=== PATIENT | male | born 1945 | race Caucasian/White ===

== ENCOUNTER 2018-11-24 19:37 | Observation (INO) ==
--- NOTE | 2018-11-24 19:47 | Emergency Department Note ---
Disposition Clinical Impression: Syncope Disposition: Admitted As Inpatient Condition: Fair General Adult HPI - General Chief complaint: ED Syncope Stated complaint: Mulitiple syncopal episodes Time Seen by Provider: 11/24/18 19:44 - Related Data Home Medications Medication Instructions Recorded Confirmed Albuterol Sulfate [Albuterol 2 puff IH TID 07/14/15 06/21/16 Inhaler] Aspirin 81 mg PO BID 07/14/15 06/21/16 Atenolol [Tenormin] 12.5 mg PO HS 07/14/15 06/21/16 Gabapentin [Neurontin] 300 mg PO HS 07/14/15 06/21/16 Glucagon,Human Recombinant 1 mg IJ 6XD 07/14/15 06/21/16 [Glucagon Emergency Kit] Insulin ASPART [NovoLOG] 100 unit SQ DAILY MDD 63.35 UNIT 07/14/15 06/21/16 PER DAY + BOLUS Magnesium Oxide [Magnesium] 400 mg PO DAILY 07/14/15 06/21/16 Metformin [Glucophage] 500 mg PO BID 07/14/15 06/21/16 Nitroglycerin 0.4 mg SL Q5MIN 07/14/15 06/21/16 Ranitidine HCl [Zantac] 150 mg PO BID 07/14/15 06/21/16 Rosuvastatin [Crestor] 20 mg PO HS 07/14/15 06/21/16 Spironolactone [Aldactone] 25 mg PO DAILY 07/14/15 06/21/16 Testosterone [Androgel] 81 mg TD DAILY 07/14/15 06/21/16 Venlafaxine [Effexor] 150 mg PO DAILY 07/14/15 06/21/16 Trospium Chloride 20 mg PO BID 05/18/16 06/21/16 Alprostadil [[place]] 500 mcg UR AD 06/21/16 06/21/16 Lactobacillus Combination No.8 1 cap PO DAILY 06/21/16 06/21/16 [Adult Probiotic] Loratadine [Claritin] 10 mg PO DAILY 06/21/16 06/21/16 Mirabegron [Myrbetriq] 50 mg PO DAILY 06/21/16 06/21/16 Finasteride [Proscar] 5 mg PO DAILY 09/27/16 09/27/16 Previous Rx's Medication Instructions Recorded Docusate [Colace] 100 mg PO BID #60 capsule 05/18/16 HYDROcodone/Acet 5/325 mg [[place] 2 tab PO Q4H PRN #30 tablet 05/18/16 5-325 mg] Ciprofloxacin [Cipro] 500 mg PO BID #14 tablet 07/12/16 Tizanidine HCl 4 mg PO TID #15 tablet 09/05/17 Tramadol HCl [Ultram] 50 mg PO TID PRN #12 tab 09/05/17 Allergies Allergy/AdvReac Type Severity Reaction Status Date / Time etodolac Allergy Mild Rash Verified 07/14/15 08:11 naproxen Allergy Mild Rash Verified 07/14/15 08:11 niacin Allergy Mild Rash Verified 06/21/16 11:15 penicillin V Allergy Mild Itching Verified 07/14/15 08:11 atorvastatin [From Lipitor] Allergy Unknown See Verified 07/14/15 08:11 Comments tolterodine [From Detrol] Allergy Unknown See Verified 07/14/15 08:11 Comments metformin AdvReac Mild Diarrhea Verified 07/14/15 08:11 Past Medical History - Past Medical History Medical history: Reports: non-contributory, other Surgical history: Reports: non-contributory, cataract, other Psychiatric history: Reports: no psych history - Social History Smoking Status: Never smoker Smokeless Tobacco Status: No Alcohol use: Reports: none Drug use: Reports: none Course Vital Signs Temperature 97.9 F 11/24/18 19:41 Pulse Rate 81 11/24/18 19:41 Respiratory Rate 20 11/24/18 19:41 Blood Pressure 155/75 11/24/18 19:41 O2 Sat by Pulse Oximetry 99 11/24/18 19:41 Temperature 97.9 F 11/24/18 19:41 Pulse Rate 83 11/24/18 21:39 Respiratory Rate 18 11/24/18 21:39 Blood Pressure 127/65 11/24/18 21:39 O2 Sat by Pulse Oximetry 96 11/24/18 21:39 Oxygen Delivery Oxygen Delivery Room Air Medical Decision Making - Lab Data Result diagrams: 11/24/18 20:16 11/24/18 20:16 Lab Results 11/24/18 11/24/18 11/24/18 Range/Units 20:05 20:16 20:16 WBC 9.4 (4.3-11.1) K/mcL RBC 4.38 (4.19-5.50) M/mcL Hgb 12.2 L (12.9-16.9) g/dL Hct 37.2 L (37.5-50.1) % MCV 84.9 (83.0-100.0) fL MCH 27.9 L (28.0-33.3) pg MCHC 32.8 (31.6-35.5) g/dL RDW 13.5 (11.5-14.5) % Plt Count 270 (140-400) K/mcL MPV 9.5 (9.4-12.4) fL Immature Gran % 0.4 (0-4) % Seg Neutrophils % 67.8 % Lymphocytes % 19.9 % Monocytes % 9.3 % Eosinophils % 1.7 % Basophils % 0.9 % Neutrophils # 6.4 (1.6-8.9) K/mcL Lymphocytes # 1.9 (0.6-4.6) K/mcL Monocytes # 0.9 (0.0-1.3) K/mcL Eosinophils # 0.2 (0.0-0.6) K/mcL Basophils # 0.1 (0.0-0.2) K/mcL Sodium 135 L (136-145) mEq/L Potassium 3.8 (3.5-5.1) mEq/L Chloride 99 (98-107) mEq/L Carbon Dioxide 28 (23-29) mEq/L BUN 26 H (8-23) mg/dL Creatinine 1.72 H (0.70-1.30) mg/dL Est GFR ( Amer) 48 L (> 60) Est GFR (Non-Af Amer) 39 L (> 60) BUN/Creatinine Ratio 15 (6-26) Glucose 97 (70-105) mg/dL Calculated Osmolality 285 (280-300) Calcium 9.7 (8.6-10.3) mg/dL Troponin I < 0.03 (< 0.04) ng/mL Urine Color Yellow (Yellow) Urine Clarity Clear (Clear) Urine pH 6.0 (5.0-8.0) pH Units Ur Specific [place] 1.018 (1.010-1.025) Urine Protein Trace (Neg-Trace) mg/dL Urine Glucose (UA) Normal (Normal) mg/dL Urine Ketones Negative (Negative) mg/dL Urine Blood Negative (Negative) Urine Nitrite Negative (Negative) Urine Bilirubin Negative (Negative) Urine Urobilinogen Normal (Normal) mg/dL Ur Leukocyte Esterase Negative (Negative) Urine Microscopic RBC 0-3 (0-3) per hpf Urine Microscopic WBC 0-3 (0-3) per hpf Ur Squamous Epith Cells Moderate H (None-Few) per lpf Urine Bacteria None Seen (None-Few) per hpf Hyaline Casts None Seen (None-Few) per lpf Attestation Statement - Attestation Attestation: I examined this patient and my medical decision-making was reviewed with the Resident Physician. I agree with the documented findings, disposition and treatment plan as described except to the extent set forth below. Patient presents to the ED with chief complaint of syncopal episode. Patient a single episode after standing up and walking to the kitchen to get a Pepsi. Patient has a history of orthostatic hypertension he takes Midrin. He had 3 episodes last night and 1 today. Family is concerned. Patient denies feeling his heart racing palpitations. No chest pain or difficulty breathing. He stat es he just feels like his "going backwards." On examination he is in no acute distress. Pleasant conversant moving all extremities. Heart regular rate and rhythm lungs are clear. Plan. Cardiac workup. Critical workup unremarkable. Patient is admitted for further workup and concern for his safety with the frequent falls. Chest X-Ray 11/24/18 19:49 IMPRESSION: No acute cardiopulmonary disease. D/ / Jasbir Kincaid MD / Jasbir Kincaid MD Interpreting Provider: Jasbir Kincaid MD Head CT 11/24/18 19:50 IMPRESSION: No acute intracranial abnormality. D/ / Bijan Cunha MD / Bijan Cunha MD Interpreting Provider: Bijan Cunha MD
[2018-11-24] MEDS ORDERED: 0.9 % Sodium Chloride 1,000 ML IVC ONE (19:49)
[2018-11-24 20:18] LABS: Bilirubin,Urine Negative (Negative); Blood,Urine Negative (Negative); Clarity,Urine Clear (Clear); Color,Urine Yellow (Yellow); Glucose,Urine (UA) Normal (Normal); Ketones,Urine Negative (Negative); Leukocyte Esterase,Urine Negative (Negative); Nitrite,Urine Negative (Negative); Protein,Urine Trace mg/dL (Neg-Trace); Specific Gravity,Urine 1.018 (1.010-1.025); Urobilinogen,Urine Normal (Normal)
[2018-11-24 20:21] LABS: Bacteria,Urine None Seen per hpf (None-Few); Hyaline Casts,Urine None Seen per lpf (None-Few); RBC,Urine 0-3 per hpf (0-3); Squamous Epithelial Cell,Urine Moderate per lpf (None-Few); WBC,Urine 0-3 per hpf (0-3)
--- NOTE | 2018-11-24 20:30 | Emergency Department Note ---
Disposition Clinical Impression: Syncope Qualifiers: Syncope type: unspecified Qualified Code(s): R55 - Syncope and collapse Disposition: Admitted As Inpatient Condition: Fair [facility]errals: [facility] [Primary Care Provider[facility] - Time of Disposition: 22:32 Syncope HPI - General Chief Complaint: ED Syncope Stated Complaint: Mulitiple syncopal episodes Time Seen by Provider: 11/24/18 19:44 Source: patient, family, EMS Mode of arrival: ambulatory Limitations: no limitations Nursing Notes Reviewed: Yes Vital Signs Reviewed: Yes - History of Present Illness HPI Narrative: 73-year-old male presents to the emergency department for multiple syncopal events. These been occurring more the last 3-4 days. Today they happened approximately 3 times he said he stated up out of the chair was walking took 2 or 3 steps felt lightheaded and then fell to the ground does not remember the fall to the ground said he completely did pass out. They said that he did not hit his head is not complaining of any headaches. Patient does take midodrine for hypotension. Patient said he had no pain or any sensations prior to this event. He have any racing is heart. Does not have any ear pain. Otherwise there is no complaints this time including fevers, chills, nausea, vomiting, headache, blurry vision, neck pain, back pain, chest pain, shortness of breath, abdominal pain, change in bowel movement, pain with urination, pain or tingling going down the arms or legs or generalized weakness. - Related Data Home Medications Medication Instructions Recorded Confirmed Albuterol Sulfate [Albuterol 2 puff IH TID 07/14/15 06/21/16 Inhaler] Aspirin 81 mg PO BID 07/14/15 06/21/16 Atenolol [Tenormin] 12.5 mg PO HS 07/14/15 06/21/16 Gabapentin [Neurontin] 300 mg PO HS 07/14/15 06/21/16 Glucagon,Human Recombinant 1 mg IJ 6XD 07/14/15 06/21/16 [Glucagon Emergency Kit] Insulin ASPART [NovoLOG] 100 unit SQ DAILY MDD 63.35 UNIT 07/14/15 06/21/16 PER DAY + BOLUS Magnesium Oxide [Magnesium] 400 mg PO DAILY 07/14/15 06/21/16 Metformin [Glucophage] 500 mg PO BID 07/14/15 06/21/16 Nitroglycerin 0.4 mg SL Q5MIN 07/14/15 06/21/16 Ranitidine HCl [Zantac] 150 mg PO BID 07/14/15 06/21/16 Rosuvastatin [Crestor] 20 mg PO HS 07/14/15 06/21/16 Spironolactone [Aldactone] 25 mg PO DAILY 07/14/15 06/21/16 Testosterone [Androgel] 81 mg TD DAILY 07/14/15 06/21/16 Venlafaxine [Effexor] 150 mg PO DAILY 07/14/15 06/21/16 Trospium Chloride 20 mg PO BID 05/18/16 06/21/16 Alprostadil [[place]] 500 mcg UR AD 06/21/16 06/21/16 Lactobacillus Combination No.8 1 cap PO DAILY 06/21/16 06/21/16 [Adult Probiotic] Loratadine [Claritin] 10 mg PO DAILY 06/21/16 06/21/16 Mirabegron [Myrbetriq] 50 mg PO DAILY 06/21/16 06/21/16 Finasteride [Proscar] 5 mg PO DAILY 09/27/16 09/27/16 Previous Rx's Medication Instructions Recorded Docusate [Colace] 100 mg PO BID #60 capsule 05/18/16 HYDROcodone/Acet 5/325 mg [[place] 2 tab PO Q4H PRN #30 tablet 05/18/16 5-325 mg] Ciprofloxacin [Cipro] 500 mg PO BID #14 tablet 07/12/16 Tizanidine HCl 4 mg PO TID #15 tablet 09/05/17 Tramadol HCl [Ultram] 50 mg PO TID PRN #12 tab 09/05/17 Allergies Allergy/AdvReac Type Severity Reaction Status Date / Time etodolac Allergy Mild Rash Verified 07/14/15 08:11 naproxen Allergy Mild Rash Verified 07/14/15 08:11 niacin Allergy Mild Rash Verified 06/21/16 11:15 penicillin V Allergy Mild Itching Verified 07/14/15 08:11 atorvastatin [From Lipitor] Allergy Unknown See Verified 07/14/15 08:11 Comments tolterodine [From Detrol] Allergy Unknown See Verified 07/14/15 08:11 Comments metformin AdvReac Mild Diarrhea Verified 08/17/15 08:11 All systems ED: reviewed and negative except as stated. Review of Systems: As Per HPI Past Medical History - Past Medical History Attestation: Yes The following information was validated with the patient. Source: patient Medical history: Reports: non-contributory, other Surgical history: Reports: non-contributory, cataract, other Psychiatric history: Reports: no psych history - Social History Smoking Status: Never smoker Smokeless Tobacco Status: No Alcohol use: Reports: none Drug use: Reports: none Physical Exam - General Limitations: no limitations General appearance: alert, in no apparent distress - Head Head exam: atraumatic, normocephalic, normal inspection - Eye Eye exam: Present: normal appearance, PERRL, EOMI - ENT ENT exam: normal exam, normal oropharynx, mucous membranes moist - Neck Neck exam: Present: normal inspection, full ROM, trachea midline - Chest Chest inspection: Present: normal inspection, symmetric chest wall rise - Respiratory Respiratory exam: Present: normal lung sounds bilaterally - Cardiovascular Cardiovascular exam: Present: regular rate, normal rhythm, normal heart sounds - Abdominal Exam Abdominal exam: Present: soft, Non-Tender, normal bowel sounds. Absent: tender ness, distention, guarding, rebound, rigidity - Extremities Exam Extremities exam: Present: normal inspection, full ROM. Absent: tenderness, pedal edema - Back Exam Back exam: Present: normal inspection, full ROM. Absent: tenderness, CVA tenderness (R), CVA tenderness (L) - Neurological Exam Neurological exam: Present: alert, oriented X3 - Skin Skin exam: Present: warm, dry, intact, normal color Course Course Narrative: We will do basic labs including CBC, BMP as well as urinalysis and troponin. We will get EKG and chest x-ray pill would do CT of the head is recent falls. We will get orthostatic blood pressures as well. Patient will also get a bag of IV fluids. Patient most likely will be admitted for further evaluation due to the syncopal event. Vital Signs Temperature 97.9 F 11/24/18 19:41 Pulse Rate 81 11/24/18 19:41 Respiratory Rate 20 11/24/18 19:41 Blood Pressure 155/75 11/24/18 19:41 O2 Sat by Pulse Oximetry 99 11/24/18 19:41 Temperature 97.9 F 11/24/18 19:41 Pulse Rate 83 11/24/18 21:39 Respiratory Rate 18 11/24/18 21:39 Blood Pressure 127/65 11/24/18 21:39 O2 Sat by Pulse Oximetry 96 11/24/18 21:39 Oxygen Delivery Oxygen Delivery Room Air Syncope - [facility] Narrative Medical decision making narrative: Patient presents here for syncope. CT came back with no acute findings. Patient was not orthostatic to give 1 L of IV fluids responded well. All labs were normal except for mild AK I but is round his normal. Fluid should help solve this. Due to the syncope and the falling I felt patient needed be admitted for further evaluation. I spoke with the hospitalist Dr. Leos who is couple excepting the patient to their service. Patient is admitted in stable condition patient agrees with this plan is admitted Chest X-Ray 11/24/18 19:49 IMPRESSION: No acute cardiopulmonary disease. D/ / Jasbir Kincaid MD / Jasbir Kincaid MD Interpreting Provider: Jasbir Kincaid MD Head CT 11/24/18 19:50 IMPRESSION: No acute intracranial abnormality. D/ / Bijan Cunha MD / Bijan Cunha MD Interpreting Provider: Bijan Cunha MD - Medical Records Medical records reviewed: Yes I reviewed the patient's medical records. - Lab Data Lab results reviewed: Yes I reviewed the patient's lab results. Result diagrams: 11/24/18 20:16 11/24/18 20:16 Lab Results 11/24/18 11/24/18 11/24/18 Range/Units 20:05 20:16 20:16 WBC 9.4 (4.3-11.1) K/mcL RBC 4.38 (4.19-5.50) M/mcL Hgb 12.2 L (12.9-16.9) g/dL Hct 37.2 L (37.5-50.1) % MCV 84.9 (83.0-100.0) fL MCH 27.9 L (28.0-33.3) pg MCHC 32.8 (31.6-35.5) g/dL RDW 13.5 (11.5-14.5) % Plt Count 270 (140-400) K/mcL MPV 9.5 (9.4-12.4) fL Immature Gran % 0.4 (0-4) % Seg Neutrophils % 67.8 % Lymphocytes % 19.9 % Monocytes % 9.3 % Eosinophils % 1.7 % Basophils % 0.9 % Neutrophils # 6.4 (1.6-8.9) K/mcL Lymphocytes # 1.9 (0.6-4.6) K/mcL Monocytes # 0.9 (0.0-1.3) K/mcL Eosinophils # 0.2 (0.0-0.6) K/mcL Basophils # 0.1 (0.0-0.2) K/mcL Sodium 135 L (136-145) mEq/L Potassium 3.8 (3.5-5.1) mEq/L Chloride 99 (98-107) mEq/L Carbon Dioxide 28 (23-29) mEq/L BUN 26 H (8-23) mg/dL Creatinine 1.72 H (0.70-1.30) mg/dL Est GFR ( Amer) 48 L (> 60) Est GFR (Non-Af Amer) 39 L (> 60) BUN/Creatinine Ratio 15 (6-26) Glucose 97 (70-105) mg/dL Calculated Osmolality 285 (280-300) Calcium 9.7 (8.6-10.3) mg/dL Troponin I < 0.03 (< 0.04) ng/mL Urine Color Yellow (Yellow) Urine Clarity Clear (Clear) Urine pH 6.0 (5.0-8.0) pH Units Ur Specific [place] 1.018 (1.010-1.025) Urine Protein Trace (Neg-Trace) mg/dL Urine Glucose (UA) Normal (Normal) mg/dL Urine Ketones Negative (Negative) mg/dL Urine Blood Negative (Negative) Urine Nitrite Negative (Negative) Urine Bilirubin Negative (Negative) Urine Urobilinogen Normal (Normal) mg/dL Ur Leukocyte Esterase Negative (Negative) Urine Microscopic RBC 0-3 (0-3) per hpf Urine Microscopic WBC 0-3 (0-3) per hpf Ur Squamous Epith Cells Moderate H (None-Few) per lpf Urine Bacteria None Seen (None-Few) per hpf Hyaline Casts None Seen (None-Few) per lpf - Radiology Data Radiology results reviewed: Yes I reviewed the patient's radiology results. - EKG Data EKG attestation: Yes I reviewed and interpreted this EKG. EKG results narrative: EKG done at 1958 reviewed by myself and the attending shows sinus rhythm at a rate of 81, NM interval 188, QRS 92, QTC 447. There is no acute ST changes no acute T-wave changes nor signs of ischemia. No signs of hypertrophy, heart and, heart block. No WPW/we are/HOCM. EKG is unchanged when compared with old one done 05/11/16
[2018-11-24 20:52] LABS: Basophils # 0.1 K/mcL (0.0-0.2); Basophils % 0.9 %; Eosinophils # 0.2 K/mcL (0.0-0.6); Eosinophils % 1.7 %; Hematocrit 37.2 % (37.5-50.1); Hemoglobin 12.2 g/dL (12.9-16.9); Immature Granulocytes % 0.4 % (0-4); Lymphocytes # 1.9 K/mcL (0.6-4.6); Lymphocytes % 19.9 %; Mean Corpuscular HGB Conc 32.8 g/dL (31.6-35.5); Mean Corpuscular Hemoglobin 27.9 pg (28.0-33.3); Mean Corpuscular Volume 84.9 fL (83.0-100.0); Mean Platelet Volume 9.5 fL (9.4-12.4); Monocytes # 0.9 K/mcL (0.0-1.3); Monocytes % 9.3 %; Neutrophils # 6.4 K/mcL (1.6-8.9); Platelet Count 270 K/mcL (140-400); Red Blood Count 4.38 M/mcL (4.19-5.50); Red Cell Distribution Width 13.5 % (11.5-14.5); Segmented Neutrophils % 67.8 %
[2018-11-24 21:15] LABS: BUN/Creatinine Ratio 15 (6-26); Blood Urea Nitrogen 26 mg/dL (8-23); Calcium 9.7 mg/dL (8.6-10.3); Carbon Dioxide 28 mEq/L (23-29); Chloride 99 mEq/L (98-107); Glucose 97 mg/dL (70-105); Osmolality,Calculated 285 (280-300); Potassium 3.8 mEq/L (3.5-5.1); Sodium 135 mEq/L (136-145); eGFR For Non-African Americans 39 (> 60)
[2018-11-24 21:16] LABS: Troponin I < 0.03 ng/mL (< 0.04)
[2018-11-25] MEDS ORDERED: Naloxone 0.4 MG/ML INJ IVP PRN (03:01)
[2018-11-25] MEDS ORDERED: 0.9 % Sodium Chloride 1,000 ML IVC ONE (03:04)
[2018-11-25] MEDS ORDERED: D5% in Water 1,000 ML IVC PRN (03:05)
[2018-11-25] MEDS ORDERED: *HR* Dextrose 50 % in Water (Syg) 50 ML SYRINGE IVP PRN (03:05)
[2018-11-25] MEDS ORDERED: Dextrose Gel 15 GM/37.5 ML TUBE PO PRN ×2 (03:05)
--- NOTE | 2018-11-25 03:07 | Internal Med History&Physical ---
Date of Encounter: 11/25/18 Time of Encounter: 03:35 Internal Medicine - H&P: HPI Chief complaint: Syncope Admitted From: Emergency Dept Plans for Post Hospital Care: Home History of present illness: Mr. Hodges is a 73 year old male Patient presented to the emergency room for multiple syncopal events at home. Has been experiencing these more and more over the last few days but they have been occurring over the last few weeks. Today for example patient states that he was attempting to get out of his chair when he began to feel lightheaded and fell to the ground and does not remember the episode. He denies any preceding events dizziness, rapid heart rate or vision changes. He came to the emergency room for further evaluation. The emergency room patient's initial vital signs were within normal limits in cluding a blood pressure 155/75. Patient's CBC was within normal limits, BMP showed an inpatient baseline creatinine and decreased GFR from patient's baseline. Urinalysis was not indicative of infection. Chest x-ray showed no acute cardiopulmonary disease and head CT showed no acute intracranial abnormality. He was given 1 L of IV fluids orthostatic blood pressures were checked. EKG showed normal sinus rhythm with QTC of 447. There are no acute ST changes, and is unchanged from previous. He is admitted to the medical floor for further management. Upon my evaluation patient denies nausea, vomiting, diarrhea, constipation, chest pain and abdominal pain. He says he has a history of atrial fibrillation but is not taking any medicine for this for several months now. He is unsure what his medicines were or why his medicines were stopped. He has an insulin pump, that is showing his blood sugar is 102 at this time. He denies having low blood sugars during his syncopal events. Past Med Surg Social Fam HX - Past Medical History Medical history: diabetes, GERD, hyperlipidemia, hypertension, other Additional medical history: BLADDER CANCER Psychiatric history: no psych history - Past Surgical History Surgical History: non-contributory, cataract, other Additional surgical history: COLONOSCOPY, UPPP, CTR. insulin pump. TURBT. bladder cancer - Social History Smoking Status: Never smoker Smokeless Tobacco Status: No Alcohol use: none Drug use: none - Family History Father Adopted: [place]: JG Family Member Ethnicity: Non- Living Status: Age at : 65 Cause of : [place] Hx Family Cardiac Disorders: Yes Hx Family Respiratory Disorders: No Hx Family Cancer: No Hx Family GI Disorders: No Hx Family Genitourinary Disorders: No Hx Family Endocrine Disorder: Yes (DM) Hx Family Musculoskeletal Disorders: No Hx Family Neuromuscular Disorders: No Hx Family Neurologic Disorders: No Hx Family HEENT Disorders: No Hx Family Autoimmune Disorders: No Hx Family Reproductive Disorders: No Hx Family Psychosocial Disorders: No Internal Medicine - H&P: Meds Aspirin 81 mg PO BID 07/14/15 [History] Atenolol [Tenormin] 12.5 mg PO HS 07/14/15 [History] Gabapentin [Neurontin] 300 mg PO HS 07/14/15 [History] Insulin ASPART [NovoLOG] 100 unit SQ DAILY MDD 63.35 UNIT PER DAY + BOLUS 07/14/15 [History] Metformin [Glucophage] 500 mg PO BID 07/14/15 [History] Nitroglycerin 0.4 mg SL Q5MIN 07/14/15 [History] Ranitidine HCl [Zantac] 150 mg PO BID 07/14/15 [History] Rosuvastatin [Crestor] 20 mg PO HS 07/14/15 [History] Spironolactone [Aldactone] 25 mg PO DAILY 07/14/15 [History] Docusate [Colace] 100 mg PO BID #60 capsule 05/18/16 [Rx] Mirabegron [Myrbetriq] 50 mg PO DAILY 06/21/16 [History] Finasteride [Proscar] 5 mg PO DAILY 09/27/16 [History] Ascorbate Calcium [Vitamin C] 500 mg PO DAILY 11/24/18 [History] Buspirone HCl [Buspar] 10 mg PO BID 11/24/18 [History] Cyanocobalamin (B-12) [Vitamin B12] 1,000 mcg PO DAILY 11/24/18 [History] DULoxetine [Cymbalta] 60 mg PO DAILY 11/24/18 [History] Ferrous Sulfate [High Potency Iron] 27 mg PO DAILY 11/24/18 [History] Allergy/AdvReac Type Severity Reaction Status Date / Time etodolac Allergy Mild Rash Verified 07/14/15 08:11 naproxen Allergy Mild Rash Verified 07/14/15 08:11 niacin Allergy Mild Rash Verified 06/21/16 11:15 penicillin V Allergy Mild Itching Verified 07/14/15 08:11 atorvastatin [From Lipitor] Allergy Unknown See Verified 07/14/15 08:11 Comments tolterodine [From Detrol] Allergy Unknown See Verified 07/14/15 08:11 Comments metformin AdvReac Mild Diarrhea Verified 07/14/15 08:11 All Systems PM: A 10-system review of systems was performed and is negative for pertinent findings except as documented above in the HPI. - Constitutional Vitals: Temp Pulse Resp BP Pulse Ox 98.2 F 88 16 133/74 95 11/25/18 02:54 11/25/18 02:54 11/25/18 02:54 11/25/18 02:54 11/25/18 02:54 General appearance: Present: cooperative, A&O X 3, pleasant, no acute distress, answers questions appropriately Exam: - - Head Head exam: Present: normal inspection - Eye Eye exam: Present: EOMI, normal appearance - Respiratory Respiratory exam: Present: CTAB. Absent: respiratory distress, rhonchi, wheezes - Cardiovascular Cardiovascular exam: Present: RRR. Absent: diastolic murmur, systolic murmur - GI/Abdominal GI/Abdominal exam: Present: normal bowel sounds, soft. Absent: tenderness - Extremities Exam Extremities exam: Present: warm, radial pulses palpable and symmetrical. Absent: calf tenderness, pedal edema, tenderness - Neurological Exam Neurological exam: Present: no focal deficits, strengths equal and symetr throughout. Absent: motor sensory deficit, facial droop, speech deficit - Skin Skin exam: Present: dry, normal color, warm Internal Med - H&P Results - Labs CBC & Chem 7: 11/25/18 04:56 11/25/18 04:56 Labs: Short CBC 11/24/18 Range/Units 20:16 WBC 9.4 (4.3-11.1) K/mcL Hgb 12.2 L (12.9-16.9) g/dL Hct 37.2 L (37.5-50.1) % Plt Count 270 (140-400) K/mcL Neutrophils # 6.4 (1.6-8.9) K/mcL BMP 11/24/18 20:16 Sodium 135 L Potassium 3.8 Chloride 99 Carbon Dioxide 28 BUN 26 H Creatinine 1.72 H Glucose 97 Calcium 9.7 Cardiac Enzymes 11/24/18 Range/Units 20:16 Troponin I < 0.03 (< 0.04) ng/mL Urine 11/24/18 Range/Units 20:05 Urine Color Yellow (Yellow) Urine Clarity Clear (Clear) Urine pH 6.0 (5.0-8.0) pH Units Ur Specific [place] 1.018 (1.010-1.025) Urine Protein Trace (Neg-Trace) mg/dL Urine Glucose (UA) Normal (Normal) mg/dL - Impressions ITS Impressions Chest X-Ray 11/24/18 19:49 IMPRESSION: No acute cardiopulmonary disease. D/ / Jasbir Kincaid MD / Jasbir Kincaid MD Interpreting Provider: Jasbir Kincaid MD Head CT 11/24/18 19:50 IMPRESSION: No acute intracranial abnormality. D/ / Bijan Cunha MD / Bijan Cunha MD Interpreting Provider: Bijan Cunha MD - Assessment and plan (1) Syncope Current Visit: Yes Status: Acute Assessment and plan: Patient has multiple falls at home. He does appear to have multiple medications that could be contributing including diuretics, blood pressure medicines and finasteride. Patient has no recent echocardiogram. Cardiac monitoring Repeat orthostatic vital signs in the morning Continue IV fluid hydration Echocardiogram in the morning PT and OT consult in the morning Hold home meds Qualifiers: Syncope type: unspecified Qualified Code(s): R55 - Syncope and collapse (2) Diabetes Current Visit: Yes Status: Acute Assessment and plan: Patient has insulin pump. It appears to be functioning, patient denies hypoglyc emic episodes at home. Continue insulin pump Diabetic diet Monitor sugars with meals and at night Low-dose insulin sliding scale if required Qualifiers: Diabetes mellitus type: type 2 Diabetes mellitus terminal system operator insulin use: with retirement use Diabetes mellitus complication status: without complication Qualified Code(s): E11.9 - Type 2 diabetes mellitus without complications; Z79.4 - halfway (current) use of insulin (3) Chronic kidney disease, stage III (moderate) Current Visit: Yes Status: Acute Assessment and plan: Patient received a liter of fluids in the emergency room. Repeat labs in the morning Continue to monitor Continue fluid hydration (4) DVT prophylaxis Current Visit: Yes Status: Acute Assessment and plan: SCDs - Time Spent With Patient Total time spent is greater than 50% in coordination of care (as documented) at patient's floor/unit and/or counseling patient: Greater than 35 minutes
[2018-11-25 05:46] LABS: Hematocrit 32.4 % (37.5-50.1); Hemoglobin 10.8 g/dL (12.9-16.9); Mean Corpuscular HGB Conc 33.3 g/dL (31.6-35.5); Mean Corpuscular Hemoglobin 27.8 pg (28.0-33.3); Mean Corpuscular Volume 83.5 fL (83.0-100.0); Mean Platelet Volume 9.4 fL (9.4-12.4); Platelet Count 218 K/mcL (140-400); Red Blood Count 3.88 M/mcL (4.19-5.50); Red Cell Distribution Width 13.6 % (11.5-14.5)
[2018-11-25 06:02] LABS: BUN/Creatinine Ratio 19 (6-26); Blood Urea Nitrogen 26 mg/dL (8-23); Calcium 9.5 mg/dL (8.6-10.3); Carbon Dioxide 26 mEq/L (23-29); Chloride 103 mEq/L (98-107); Glucose 130 mg/dL (70-105); Osmolality,Calculated 289 (280-300); Potassium 3.8 mEq/L (3.5-5.1); Sodium 136 mEq/L (136-145); eGFR For Non-African Americans 52 (> 60)
[2018-11-25] MEDS: Famotidine 20 MG TABLET PO SCH ×2 (06:49→17:06)
[2018-11-25] MEDS ORDERED: Insulin LISPRO 300 UNITS/3 ML VIAL SQ SCH ×2 (07:30→21:00)
[2018-11-25] MEDS: Aspirin 81 MG TAB.CHEW PO SCH ×2 (08:57→20:54)
--- NOTE | 2018-11-25 10:38 | Internal Med Progress Note ---
Hospitalist Progress Note - Encounter Date of Encounter: 11/25/18 Time of Encounter: 10:33 - Subjective Interval History: Patient presented with one-week history of dizziness and multiple syncopal events. Denies any recurrent syncopal events throughout stay. He does have a history of postural hypotension and has been on midodrine for which he is still currently taking. He denies any syncopal events this morning. He is currently resting comfortably in bed. Orthostatic vitals obtained in confirm postural hypotension. I discussed plan of care with patient and including holding finasteride, anti-HTN medications and diuretics at this time. Patient and spouse agree. - Exam Vitals: Temp Pulse Resp BP Pulse Ox 100.9 F H 88 16 164/85 94 11/25/18 08:34 11/25/18 08:34 11/25/18 08:34 11/25/18 08:34 11/25/18 08:34 Exam: PHYSICAL EXAMINATION: GENERAL: The patient is an elderly male, NAD, A and O 3 HEENT: Head is normocephalic and atraumatic. Extraocular muscles are intact. Pupils are equal, round, and reactive to light and accommodation. NECK: Supple. No carotid bruits. No lymphadenopathy or thyromegaly. LUNGS: Clear to auscultation B/L AP and L. HEART: Regular rate and rhythm, S1, S2 without murmur, rubs or gallops. ABDOMEN: Soft, nontender, and nondistended. Positive bowel sounds. No hepatosplenomegaly was noted. EXTREMITIES: Without any cyanosis, clubbing, rash, lesions or edema. NEUROLOGIC: Cranial nerves II through XII are grossly intact., Nonlateralizing and nonfocal PSYCHIATRIC: Appropriate affect, denies SI/HI, without agitation or anxiety SKIN: No ulceration or induration present. - Assessment and Plan (1) Syncope Current Visit: Yes Status: Acute Assessment and Plan: History of postural hypotension with prior syncopal events; for this he is on midodrine 10 mg by mouth 3 times a day Reporting 1 week history of dizziness and recurrent syncopal events He is noted to have a new anemia and this is being evaluated He also appeared dehydrated on exam; continue IV fluid hydration Positive orthostatic vitals; continue these twice a day He is on multiple medications which could be contributing to syncope including antihypertensives, finasteride and diuretics; these are held for now Resume midodrine, continue titration depending on patient's blood pressure TTE pending completion Bilateral carotid Dopplers pending completion With assist only; feet tingle at edge of bed for 2 minutes prior to position change (2) Chronic kidney disease, stage III (moderate) Current Visit: Yes Status: Acute Assessment and Plan: History of CKD 3 AK I on admission as suspect due to over diuresis with diuretics Received IV fluids and renal function improved and now back to baseline Continue monitor closely and avoid nephrotoxins (3) Anemia Current Visit: Yes Status: Acute Assessment and Plan: Normocytic hypochromic anemia No prior history Hemoglobin/hematocrit decreased overnight from 12.2/37.2; this morning 10.8/32.4 No obvious blood loss, remains hemodynamically stable Has had recent weakness, dizziness and recurrent syncopal events Check B12, folate and iron profile is also transferrin Recheck labs in a.m. Obtain FOBT (4) Diabetes Current Visit: Yes Status: Acute Assessment and Plan: per hx Manages with oral hypoglycemics and insulin pump Continue insulin pump and oral hypoglycemic agents Before meals and at bedtime Accu-Cheks and diabetic diet DVT Prophylaxis: SCD'S - Time Spent with Patient Total time spent is greater than 50% in coordination of care (as documented) at patient's floor/unit and/or counseling patient: less than 15 minutes Plan of Care Discussed with: patient Internal Medicine: Result - Labs CBC & Chem 7: 11/25/18 04:56 11/25/18 04:56 Labs: Short CBC 11/24/18 11/25/18 Range/Units 20:16 04:56 WBC 9.4 6.9 (4.3-11.1) K/mcL Hgb 12.2 L 10.8 L (12.9-16.9) g/dL Hct 37.2 L 32.4 L (37.5-50.1) % Plt Count 270 218 (140-400) K/mcL Neutrophils # 6.4 (1.6-8.9) K/mcL BMP 11/24/18 11/25/18 20:16 04:56 Sodium 135 L 136 Potassium 3.8 3.8 Chloride 99 103 Carbon Dioxide 28 26 BUN 26 H 26 H Creatinine 1.72 H 1.36 H Glucose 97 130 H Calcium 9.7 9.5 Cardiac Enzymes 11/24/18 Range/Units 20:16 Troponin I < 0.03 (< 0.04) ng/mL Urine 11/24/18 Range/Units 20:05 Urine Color Yellow (Yellow) Urine Clarity Clear (Clear) Urine pH 6.0 (5.0-8.0) pH Units Ur Specific [place] 1.018 (1.010-1.025) Urine Protein Trace (Neg-Trace) mg/dL Urine Glucose (UA) Normal (Normal) mg/dL - Impressions Impressions Chest X-Ray 11/24/18 19:49 IMPRESSION: No acute cardiopulmonary disease. D/ / Jasbir Kincaid MD / Jasbir Kincaid MD Interpreting Provider: Jabsir Kincaid MD Head CT 11/24/18 19:50 IMPRESSION: No acute intracranial abnormality. D/ / Bijan Cunha MD / Bijan Cunha MD Interpreting Provider: Bijan Cunha MD Consult Discharge Plan - Plan [facility]errals: [facility] [Primary Care Provider] - (1) Syncope Qualifiers: Syncope type: unspecified Qualified Code(s): R55 - Syncope and collapse (3) Anemia Qualifiers: Anemia type: unspecified type Qualified Code(s): D64.9 - Anemia, unspecified (4) Diabetes Qualifiers: Diabetes mellitus type: type 2 Diabetes mellitus superintendent terminal insulin use: with superintendent terminal use Diabetes mellitus complication status: without complication Qualified Code(s): E11.9 - Type 2 diabetes mellitus without complications; Z79.4 - snf (current) use of insulin
[2018-11-25] MEDS: [UNRECOGNIZED DRUG - REMARK] SQ SCH (11:44)
[2018-11-25] MEDS: *HR* Metformin 500 MG TABLET PO SCH ×2 (11:55→17:06)
[2018-11-25 12:42] LABS: % Iron Saturation 16 % (20-55); Iron 50 mcg/dL (65-175); Transferrin 227 mg/dL (203-362)
[2018-11-26 04:19] LABS: Basophils # 0.1 K/mcL (0.0-0.2); Basophils % 1.6 %; Eosinophils # 0.2 K/mcL (0.0-0.6); Hematocrit 31.5 % (37.5-50.1); Hemoglobin 10.5 g/dL (12.9-16.9); Immature Granulocytes % 0.2 % (0-4); Lymphocytes # 1.9 K/mcL (0.6-4.6); Lymphocytes % 33.7 %; Mean Corpuscular HGB Conc 33.3 g/dL (31.6-35.5); Mean Corpuscular Hemoglobin 27.3 pg (28.0-33.3); Mean Corpuscular Volume 81.8 fL (83.0-100.0); Mean Platelet Volume 9.3 fL (9.4-12.4); Monocytes # 0.5 K/mcL (0.0-1.3); Monocytes % 9.1 %; Neutrophils # 2.8 K/mcL (1.6-8.9); Platelet Count 223 K/mcL (140-400); Red Blood Count 3.85 M/mcL (4.19-5.50); Red Cell Distribution Width 13.7 % (11.5-14.5); Segmented Neutrophils % 51.4 %
[2018-11-26 04:40] LABS: BUN/Creatinine Ratio 18 (6-26); Blood Urea Nitrogen 22 mg/dL (8-23); Calcium 9.3 mg/dL (8.6-10.3); Carbon Dioxide 23 mEq/L (23-29); Chloride 104 mEq/L (98-107); Glucose 124 mg/dL (70-105); Osmolality,Calculated 289 (280-300); Sodium 137 mEq/L (136-145); eGFR For Non-African Americans 60 (> 60)
[2018-11-26] MEDS: Famotidine 20 MG TABLET PO SCH ×2 (09:06→17:24)
[2018-11-26] MEDS: Aspirin 81 MG TAB.CHEW PO SCH (09:06)
[2018-11-26] MEDS: [UNRECOGNIZED DRUG - REMARK] SQ SCH (09:06)
[2018-11-26] MEDS: *HR* Metformin 500 MG TABLET PO SCH ×2 (09:06→17:24)
--- NOTE | 2018-11-26 12:09 | Internal Med Progress Note ---
Hospitalist Progress Note - Encounter Date of Encounter: 11/26/18 Time of Encounter: 11:24 - Subjective Interval History: Patient presented with one-week history of dizziness and multiple syncopal events. Denies any recurrent syncopal events throughout stay. He does have a history of postural hypotension and has been on midodrine for which he is still currently taking. He denies any syncopal events this morning. He is currently resting comfortably in bed. Orthostatic vitals obtained in confirm postural hypotension. I discussed plan of care with patient and including holding finasteride, anti-HTN medications and diuretics at this time. Patient and spouse agree. - Exam Vitals: Temp Pulse Resp BP Pulse Ox 97.6 F 80 18 169/71 93 11/26/18 08:36 11/26/18 10:45 11/26/18 08:36 11/26/18 10:45 11/26/18 08:36 - Assessment and Plan (1) Syncope Current Visit: Yes Status: Acute (2) Chronic kidney disease, stage III (moderate) Current Visit: Yes Status: Acute (3) Anemia Current Visit: Yes Status: Acute (4) Diabetes Current Visit: Yes Status: Acute (5) Hallucinations Current Visit: Yes Status: Acute Assessment and Plan: Reporting ongoing complex visual hallucinations without auditory component. He has been having episodes of progressive syncope refractory to midodrine treatment which is concerning for dysautonomic presentation. His neurological exam is nonlateralizing and nonfocal. The hallucinations are binocular and throughout all visual field and he does not be appearing to respond to internal stimulus and appears to have insight. He is an 85 M who is not taking any recreational drugs, and is not on any dopaminergic medications which would explain his s/sx. His hallucinations to not appear to be of retinal etiology given the complexity of hallucinations and intact visual field. I do not believe these hallucinations to be peduncular either as he is not endorsing alterations and sleep-wake cycle or vivid/colorful hallucinations. His physical exam is without ocular movement disturbances and pupils are round and reactive to light and accommodation. His is at bedside and notes that he was recently evaluated for possible dementia of Lewy body at the [facility] however analysis at that time was inconclusive. She does note increasing episodes of confusion, word findings, disequilibrium and changes in thought process. Per my exam he does appear to have alterations to reasoning and logic. I believe that the exam findings, and confusion, disequilibrium and difficulties with reasoning and logic do indicate a possible dementia of Lewy bodies which co uld explain his presentation. He does not have any prior psychiatric illnesses and does not appear to be in acute psychosis as he continues to have insight and realizes that these hallucinations are not real, also he is not responding to internal stimuli. Also I do not believe these to be a manifestation of metabolic encephalopathy as the patient is not on any toxic agents, does not appear to have systemic disease nor is he hypoxic. - Time Spent with Patient Total time spent is greater than 50% in coordination of care (as documented) at patient's floor/unit and/or counseling patient: Internal Medicine: Result - Labs CBC & Chem 7: 11/26/18 03:33 11/26/18 03:33 Labs: Short CBC 11/26/18 Range/Units 03:33 WBC 5.5 (4.3-11.1) K/mcL Hgb 10.5 L (12.9-16.9) g/dL Hct 31.5 L (37.5-50.1) % Plt Count 223 (140-400) K/mcL Neutrophils # 2.8 (1.6-8.9) K/mcL BMP 11/26/18 03:33 Sodium 137 Potassium 4.0 Chloride 104 Carbon Dioxide 23 BUN 22 Creatinine 1.20 Glucose 124 H Calcium 9.3 Consult Discharge Plan - Plan Referrals: [facility] [Primary Care Provider] - (1) Syncope Qualifiers: Syncope type: unspecified Qualified Code(s): R55 - Syncope and collapse (3) Anemia Qualifiers: Anemia type: unspecified type Qualified Code(s): D64.9 - Anemia, unspecified (4) Diabetes Qualifiers: Diabetes mellitus type: type 2 Diabetes mellitus exterminator termite insulin use: with skilled nursing use Diabetes mellitus complication status: without complication Qualified Code(s): E11.9 - Type 2 diabetes mellitus without complications; Z79.4 - intermediate (current) use of insulin
--- NOTE | 2018-11-26 17:49 | Discharge Summary ---
- NOTES TO OUTPATIENT PROVIDER Notes to Outpatient Provider: F/U WITH PCP AND NEUROLOGIST AT [facility] REGARDING COGNATIVE CHANGES AND HALLUCINATIONS. I HAVE OFFERED FURTHER WORKUP OF COGTIVE CHANGES AND HALLUCINATIONS INCLUDING NEUROLOGY EVALUATION AND MRI HOWEVER PATIENT REFUSES AND REQUESTING D/C Orders not resulted at time of discharge: Pending orders 11/28/18 04:00 Basic Metabolic Panel AM 0400 Complete Blood Count [HEME] AM 0400 11/25/18 10:45 Occult Blood,Stool [BF] Routine 11/27/18 04:00 Basic Metabolic Panel AM 0400 Complete Blood Count [HEME] AM 0400 Date of Encounter: 11/26/18 Time of Encounter: 17:46 - Discharge Diagnosis (1) Syncope Priority: Primary Status: Acute Assessment and Plan: History of postural hypotension with prior syncopal events; for this he is on midodrine 10 mg by mouth 3 times a day Reporting 1 week history of dizziness and recurrent syncopal events He is noted to have a new anemia and this is being evaluated He also appeared dehydrated on exam; continue IV fluid hydration Positive orthostatic vitals; continue these twice a day He is on multiple medications which could be contributing to syncope including antihypertensives, finasteride and diuretics; these are held for now Resume midodrine, continue titration depending on patient's blood pressure TTE pending completion Bilateral carotid Dopplers pending completion With assist only; feet tingle at edge of bed for 2 minutes prior to position change Presented with syncope. Has history of postural hypotension. There was concern on admission that anti-HTN meds, diuretics and proscar may be contributing to symptoms. Offending medications held including beta jorge, diuretic and Proscar. Postural hypotension persists however. Although I believe his medications had an effect on his postural hypotension per his history with cognitive changes, confusion, disequilibrium and new hallucinations I am concerned that there are other causes for his dysautonomia including but not limited to possible Lewy body dementia. This will need to be evaluated outpatient at the [facility] as he is currently further evaluation and requesting to see his primary neurologist instead. I have offered further workup and evaluation for this however, he has declined. He is able to ambulate throughout his room with somewhat of a shuffling gait. I do believe that he is of risk of falls and this was explained to him. He was explained that a fall event may result in further morbidity and mortality however, the patient is persistent regarding discharge. I will discharge him at this time at his request and he has been instructed to [facility] within 1 week of discharge. Qualifiers: Syncope type: unspecified Qualified Code(s): R55 - Syncope and collapse (2) Chronic kidney disease, stage III (moderate) Priority: Secondary Status: Acute (3) Anemia Priority: Secondary Status: Acute Qualifiers: Anemia type: unspecified type Qualified Code(s): D64.9 - Anemia, unspecified (4) Diabetes Priority: Secondary Status: Acute Qualifiers: Diabetes mellitus type: type 2 Diabetes mellitus assistant terminal manager insulin use: with assistant terminal manager use Diabetes mellitus complication status: without complication Qualified Code(s): E11.9 - Type 2 diabetes mellitus without complications; Z79.4 - termite helper (current) use of insulin (5) Hallucinations Priority: Primary Status: Acute Assessment and Plan: Reporting ongoing complex visual hallucinations without auditory component. He has been having episodes of progressive syncope refractory to midodrine treatment which is concerning for dysautonomic presentation. His neurological exam is nonlateralizing and nonfocal. The hallucinations are binocular and throughout all visual field and he does not be appearing to respond to internal stimulus and appears to have insight. He is an 85 M who is not taking any recreational drugs, and is not on any dopaminergic medications which would explain his s/sx. His hallucinations to not appear to be of retinal etiology given the complexity of hallucinations and intact visual field. I do not believe these hallucinations to be peduncular either as he is not endorsing alterations and sleep-wake cycle or vivid/colorful hallucinations. His physical exam is without ocular movement disturbances and pupils are round and reactive to light and accommodation. His is at bedside and notes that he was recently evaluated for possible dementia of Lewy body at the [facility] however analysis at that time was inconclusive. She does note increasing episodes of confusion, word findings, disequilibrium and changes in thought process. Per my exam he does appear to have alterations to reasoning and logic. I believe that the exam findings, and confusion, disequilibrium and difficulties with reasoning and logic do indicate a possible dementia of Lewy bodies which could explain his presentation. He does not have any prior psychiatric illnesses and does not appear to be in acute psychosis as he continues to have insight and realizes that these hallucinations are not real, also he is not responding to internal stimuli. Also I do not believe these to be a manifestation of metabolic encephalopathy as the patient is not on any toxic agents, does not appear to have systemic disease nor is he hypoxic. the patient was offered further workup and evaluation including consultation with neurology and neuro imaging. he declines however, reporting he would rather have his neuro workup completed at the [facility] in [place]. He is requesting discharge at this. I have instructed I believe it would be in his best interest to stay for further evaluation and have explained the risks and benfits. Patient verbalizes understanding of risks and benefits and wishes to proceed with discharge. Hospital course: Mr. Hodges is a 73 year old male Presented with syncope. Has history of postural hypotension. There was concern on admission that anti-HTN meds, diuretics and proscar may be contributing to symptoms. Offending medications held including beta jorge, diuretic and Proscar. Postural hypotension persists however. He received carotid doppler studies which showed nonstenotic plaque B/L. TTE recently completed at [facility] was received via fax and was grossly normal. He does not appear to have ACS with negative troponin and EKG without ischemic changes. TSH 0.935. Head CT without acute findings. Although I believe his medications had an effect on his postural hypotension per his history with cognitive changes, confusion, disequilibrium and new hallucinations I am concerned that there are other causes for his dysautonomia including but not limited to possible Lewy body dementia. This will need to be evaluated outpatient at the [facility] as he is currently further evaluation and requesting to see his primary neurologist instead. I have offered further workup and evaluation for this however, he has declined. He is able to ambulate throughout his room with somewhat of a shuffling gait. I do believe that he is of risk of falls and this was explained to him. He was explained that a fall event may result in further morbidity and mortality however, the patient is persistent regarding discharge. I will discharge him at this time at his request and he has been instructed to follow PCP and the [facility] neurologist within 1 week of discharge. Discharge discussed with: patient, family, nurse - Time Spent with Patient Total time spent providing and/or coordinating discharge services: Less than 30 minutes - Discharge Medications Home Medications: Aspirin 81 mg PO BID 07/14/15 [History] Atenolol [Tenormin] 12.5 mg PO HS 07/14/15 [History] Gabapentin [Neurontin] 300 mg PO HS 07/14/15 [History] Insulin ASPART [NovoLOG] 100 unit SQ DAILY MDD 63.35 UNIT PER DAY + BOLUS 07/14/15 [History] Ranitidine HCl [Zantac] 150 mg PO BID 07/14/15 [History] Rosuvastatin [Crestor] 20 mg PO HS 07/14/15 [History] Spironolactone [Aldactone] 25 mg PO DAILY 07/14/15 [History] Docusate [Colace] 100 mg PO BID #60 capsule 05/18/16 [Rx] Mirabegron [Myrbetriq] 50 mg PO DAILY 06/21/16 [History] Finasteride [Proscar] 5 mg PO DAILY 09/27/16 [History] Ascorbate Calcium [Vitamin C] 500 mg PO DAILY 11/24/18 [History] Buspirone HCl [Buspar] 10 mg PO BID 11/24/18 [History] Cyanocobalamin (B-12) [Vitamin B12] 1,000 mcg PO DAILY 11/24/18 [History] DULoxetine [Cymbalta] 60 mg PO DAILY 11/24/18 [History] Ferrous Sulfate [High Potency Iron] 27 mg PO DAILY 11/24/18 [History] Loratadine [Allergy Relief] 10 mg PO DAILY 11/25/18 [History] Metformin HCl [Metformin HCl ER] 500 mg PO TID 11/25/18 [History] Midodrine HCl 10 mg PO TID 11/25/18 [History] Allergies/Adverse Reactions: Allergy/AdvReac Type Severity Reaction Status Date / Time etodolac Allergy Mild Rash Verified 07/14/15 08:11 naproxen Allergy Mild Rash Verified 07/14/15 08:11 niacin Allergy Mild Rash Verified 06/21/16 11:15 penicillin V Allergy Mild Itching Verified 07/14/15 08:11 atorvastatin [From Lipitor] Allergy Unknown See Verified 07/14/15 08:11 Comments tolterodine [From Detrol] Allergy Unknown See Verified 07/14/15 08:11 Comments metformin AdvReac Mild Diarrhea Verified 07/14/15 08:11 Date of admission: 11/24/18 22:42 [facility] physician[facility] Consults: 11/25/18 06:02 Consult to Physical Therapy [CONS] Routine Comment: Evaluate, develop and implement POC Reason for Consult: Syncope episodes and multiple falls at home. Does patient have active BEDREST order?: No Is patient medically & hemodynamically stable?: Yes OT [Consult to Occupational Therapy] [CONS] Routine Comment: Evaluate, develop and implement POC Reason for Consult: Syncope episodes and multiple falls at home. Does patient have active BEDREST order?: No Is patient medically & hemodynamically stable?: Yes Discharging clinician: Alex Denny Anticipated date of discharge: 11/26/18 - Constitutional Vitals: Temp Pulse Resp BP Pulse Ox 97.6 F 73 18 118/70 97 11/26/18 17:06 11/26/18 17:06 11/26/18 17:06 11/26/18 17:06 11/26/18 17:06 General appearance: Present: cooperative, A&O X 3, pleasant, no acute distress, answers questions appropriately Exam: PHYSICAL EXAMINATION: GENERAL: The patient is an elderly male, NAD, A and O 3 HEENT: Head is normocephalic and atraumatic. Extraocular muscles are intact. Pupils are equal, round, and reactive to light and accommodation. NECK: Supple. No carotid bruits. No lymphadenopathy or thyromegaly. LUNGS: Clear to auscultation B/L AP and L. HEART: Regular rate and rhythm, S1, S2 without murmur, rubs or gallops. ABDOMEN: Soft, nontender, and nondistended. Positive bowel sounds. No hepatosplenomegaly was noted. EXTREMITIES: Without any cyanosis, clubbing, rash, lesions or edema. NEUROLOGIC: Cranial nerves II through XII are grossly intact., Nonlateralizing and nonfocal, shuffling gait with ambulation. This has been ongoing for 3-4 months PSYCHIATRIC: Appropriate affect, denies SI/HI, without agitation or anxiety SKIN: No ulceration or induration present. - Patient Status Disposition: Home, Self-Care Condition: Fair Functional capacity at discharge: independent ambulation Overall status at discharge: patient is progressing back to baseline - Discharge Instructions Instructions: Syncope (DC) Follow [facility] With: [facility] [Primary Care Provider] - - Diet and Activity Activity: increase activity as tolerated, resume usual activities as tolerated Diet: diabetic diet, low fat, low cholesterol, low salt diet
[2018-11-26 18:16] VITALS: BP 149/74
--- NOTE | 2018-11-29 07:49 | Electrocardiograph Report ---
[address] [address] Test Date: 2018-11-24 Pat Name: Ed Hodges Department: EXAM21 Room: 3B12 Gender: M Group Practice Pediatrician: : 1945 Requested By: Dionisio Taylor Order Number: [id number] Reading MD: Tommy Mcneal Measurements Intervals [place] Rate: 81 P: 32 VA: 188 QRS: 52 QRSD: 92 T: QT: 385 QTc: 447 Interpretive Statements Sinus rhythm Abnormal R-wave progression, early transition Borderline repolarization abnormality Electronically Signed On 11-29-2018 7:47:35 EST by Tommy Mcneal
== END 2018-11-26 18:45 | disposition home or self-care (01) ==
LOC: EMEROOARM 19:37 → 3BNU 19:37
PROVIDERS: ADMIT Internal Medicine Nephrology; ATTEND Internal Medicine Nephrology

== ENCOUNTER 2021-02-09 11:17 | Observation (INO) ==
[2021-02-09] MEDS ORDERED: levoFLOXacin 500 MG/100 ML 500 MG/100 ML BAG IVPB ONE (11:52)
[2021-02-09] MEDS ORDERED: Ringers Solution, Lactated 1,000 ML IVC SCH ×2 (12:00→21:15)
[2021-02-09] MEDS ORDERED: SODIUM CHLORIDE IS ONE (12:50)
[2021-02-09] MEDS ORDERED: GEMCITABINE HCL IS ONE (12:50)
[2021-02-09 13:43] LABS: INR 1.1; Prothrombin Time 12.4 Seconds (9.4-12.1)
[2021-02-09] MEDS ORDERED: Ondansetron 4 MG/2 ML VIAL IVP PRN (13:57)
[2021-02-09] MEDS ORDERED: Lidocaine -MPF 2% 2 ML VIAL ONE (14:36)
[2021-02-09] MEDS ORDERED: Lidocaine Jelly 6ml 1 APPL/6 ML JEL.PF.APP ONE (14:36)
[2021-02-09] MEDS ORDERED: SUBCUTANEOUS INSULIN PUMP MC SCH (22:15)
[2021-02-09] MEDS ORDERED: Acetaminophen 325 MG TABLET PO PRN (22:20)
[2021-02-09] MEDS ORDERED: Naloxone 0.4 MG/ML INJ IVP PRN (22:20)
[2021-02-09] MEDS ORDERED: Dextrose Gel 15 GM/37.5 ML TUBE PO PRN ×2 (22:22)
[2021-02-09] MEDS ORDERED: *HR* Dextrose 50 % in Water (Vial) 50 ML VIAL IVP PRN (22:22)
[2021-02-09] MEDS ORDERED: D5% in Water 1,000 ML IVC PRN (22:22)
[2021-02-09] MEDS ORDERED: Prochlorperazine 10 MG/2 ML VIAL IVP PRN (22:22)
[2021-02-09] MEDS ORDERED: QUEtiapine Fumarate 25 MG TABLET PO SCH (22:30)
[2021-02-09] MEDS ORDERED: Insulin LISPRO 300 UNITS/3 ML VIAL SUBQ SCH (22:30)
[2021-02-09 22:43] LABS: Basophils # 0.1 K/mcL (0.0-0.2); Basophils % 0.9 %; Eosinophils # 0.1 K/mcL (0.0-0.6); Eosinophils % 1.5 %; Hematocrit 36.7 % (37.5-50.1); Hemoglobin 11.8 g/dL (12.9-16.9); Immature Granulocytes % 0.3 % (0-4); Lymphocytes # 1.8 K/mcL (0.6-4.6); Lymphocytes % 19.7 %; Mean Corpuscular HGB Conc 32.2 g/dL (31.6-35.5); Mean Corpuscular Hemoglobin 27.5 pg (28.0-33.3); Mean Corpuscular Volume 85.5 fL (83.0-100.0); Mean Platelet Volume 8.9 fL (9.4-12.4); Monocytes # 0.8 K/mcL (0.0-1.3); Monocytes % 8.4 %; Neutrophils # 6.3 K/mcL (1.6-8.9); Platelet Count 211 K/mcL (140-400); Red Blood Count 4.29 M/mcL (4.19-5.50); Red Cell Distribution Width 14.2 % (11.5-14.5); Segmented Neutrophils % 69.2 %; White Blood Count 9.2 K/mcL (4.3-11.1)
[2021-02-09 22:53] LABS: Estimated Average Glucose 148 mg/dl; Hemoglobin A1C 6.8 %
[2021-02-09 23:10] LABS: % Iron Saturation 13 % (20-55); Alanine Aminotransferase 13 Units/L (7-52); Albumin 3.8 g/dL (3.5-5.7); Albumin/Globulin Ratio 1.2 (1.1-2.2); Alkaline Phosphatase 75 Units/L (34-104); Aspartate Amino Transferase 18 Units/L (13-39); BUN/Creatinine Ratio 16 (6-26); Bilirubin,Total 0.4 mg/dL (0.3-1.0); Blood Urea Nitrogen 21 mg/dL (8-23); Calcium 9.1 mg/dL (8.6-10.3); Carbon Dioxide 22 mEq/L (23-29); Chloride 105 mEq/L (98-107); Chol/HDL Ratio 2.9 (0-4.9); Cholesterol 98 mg/dL (< 200); Globulin 3.1 g/dL (2.4-3.5); Glucose 151 mg/dL (70-105); HDL Cholesterol 34 mg/dL (40-59); Iron 39 mcg/dL (65-175); LDL Cholesterol,Calculated 40 mg/dL (< 100); Magnesium 1.9 mg/dL (1.6-2.6); Osmolality,Calculated 288 (280-300); Potassium 4.1 mEq/L (3.5-5.1); Sodium 136 mEq/L (136-145); Total Protein 6.9 g/dL (6.4-8.9); Transferrin 216 mg/dL (203-362); Triglycerides 122 mg/dL (< 150); eGFR For African Americans > 60 (> 60); eGFR For Non-African Americans 55 (> 60)
[2021-02-09 23:29] LABS: Ferritin 117 ng/mL (20-250)
[2021-02-09 23:58] LABS: Bilirubin,Urine Negative (Negative); Blood,Urine Large (Negative); Clarity,Urine Clear (Clear); Color,Urine Red (Yellow); Glucose,Urine (UA) Normal (Normal); Ketones,Urine Negative (Negative); Leukocyte Esterase,Urine Small (Negative); Nitrite,Urine Negative (Negative); Protein,Urine >=300 mg/dL (Neg-Trace); Specific Gravity,Urine >= 1.030 (1.010-1.025); Urobilinogen,Urine Normal (Normal)
[2021-02-10 06:45] VITALS: BP 119/70
[2021-02-10] MEDS ORDERED: Insulin LISPRO 300 UNITS/3 ML VIAL SUBQ SCH (07:30)
[2021-02-10] MEDS ORDERED: (Mirabegron [Myrbetriq] 50 MG Tab.Er.24h) PO SCH (09:00)
[2021-02-10] MEDS ORDERED: Finasteride 5 MG TABLET PO SCH (09:00)
[2021-02-10] MEDS ORDERED: Famotidine 20 MG TABLET PO SCH (09:00)
[2021-02-10] MEDS ORDERED: Aspirin Enteric Coated 81 MG Tablet PO SCH (09:00)
[2021-02-10] MEDS ORDERED: Spironolactone 25 MG TABLET PO SCH (09:00)
[2021-02-10] MEDS ORDERED: Cholecalciferol (D-3) 1,000 UNIT (25MCG) TABLET PO SCH (09:00)
== END 2021-02-10 10:26 | disposition home or self-care (01) ==
LOC: SAMDAY 11:17 → 3ANU 11:17
PROVIDERS: ADMIT Urology; ATTEND Urology

== ENCOUNTER 2022-05-06 21:35 | Inpatient (IN) ==
[2022-05-06] MEDS ORDERED: 0.9 % Sodium Chloride 1,000 ML IVC ONE (22:21)
[2022-05-06 23:11] LABS: Basophils # 0.1 K/mcL (0.0-0.2); Basophils % 1.1 %; Eosinophils # 0.2 K/mcL (0.0-0.6); Eosinophils % 3.5 %; Hematocrit 34.4 % (37.5-50.1); Hemoglobin 11.5 g/dL (12.9-16.9); Immature Granulocytes % 0.5 % (0-4); Lymphocytes # 1.8 K/mcL (0.6-4.6); Mean Corpuscular HGB Conc 33.4 g/dL (31.6-35.5); Mean Corpuscular Hemoglobin 27.7 pg (28.0-33.3); Mean Corpuscular Volume 82.9 fL (83.0-100.0); Mean Platelet Volume 9.5 fL (9.4-12.4); Monocytes # 0.5 K/mcL (0.0-1.3); Monocytes % 8.2 %; Neutrophils # 3.1 K/mcL (1.6-8.9); Platelet Count 233 K/mcL (140-400); Red Blood Count 4.15 M/mcL (4.19-5.50); Red Cell Distribution Width 13.7 % (11.5-14.5); Segmented Neutrophils % 54.7 %; White Blood Count 5.7 K/mcL (4.3-11.1)
[2022-05-06 23:37] LABS: Alanine Aminotransferase 11 Units/L (7-52); Albumin 3.6 g/dL (3.5-5.7); Albumin/Globulin Ratio 1.2 (1.1-2.2); Alkaline Phosphatase 75 Units/L (34-104); Aspartate Amino Transferase 23 Units/L (13-39); BUN/Creatinine Ratio 20 (6-26); Bilirubin,Total 0.4 mg/dL (0.3-1.0); Blood Urea Nitrogen 23 mg/dL (8-23); Calcium 9.2 mg/dL (8.6-10.3); Carbon Dioxide 24 mEq/L (23-29); Chloride 101 mEq/L (98-107); Creatine Kinase 755 Units/L (30-223); Glucose 225 mg/dL (70-105); Magnesium 1.4 mg/dL (1.6-2.6); Osmolality,Calculated 289 (280-300); Potassium 4.3 mEq/L (3.5-5.1); Sodium 134 mEq/L (136-145); Total Protein 6.6 g/dL (6.4-8.9); Troponin I < 0.03 ng/mL (< 0.04); eGFR For African Americans > 60 (> 60); eGFR For Non-African Americans > 60 (> 60)
[2022-05-06 23:48] LABS: Influenza A PCR Negative (Negative); Influenza B PCR Negative (Negative); Resp. Syncytial Virus PCR Negative (Negative)
[2022-05-06 23:49] LABS: SARS-CoV-2 by PCR (In House) Negative (Negative)
[2022-05-07 00:23] LABS: Bilirubin,Urine Negative (Negative); Blood,Urine Moderate (Negative); Clarity,Urine Clear (Clear); Color,Urine Light-Yellow (Yellow); Glucose,Urine (UA) 500 mg/dL (Normal); Ketones,Urine Negative (Negative); Leukocyte Esterase,Urine Negative (Negative); Mucus,Urine Few per lpf (None-Few); Nitrite,Urine Negative (Negative); PH,Urine 5.5 pH Units (5.0-8.0); Protein,Urine Trace mg/dL (Neg-Trace); RBC,Urine 15-30 per hpf (0-3); Specific Gravity,Urine 1.022 (1.010-1.025); Squamous Epithelial Cell,Urine Few per hpf (None-Few); Urobilinogen,Urine Normal (Normal)
[2022-05-07] MEDS ORDERED: cefTRIAXone 1,000 MG in Water for inj. (sterile) 10 ML IVP ONE (00:33)
[2022-05-07] MEDS ORDERED: Melatonin 3 MG TABLET PO PRN (00:45)
[2022-05-07] MEDS ORDERED: Naloxone 0.4 MG/ML INJ IVP PRN (00:45)
[2022-05-07] MEDS ORDERED: Ondansetron 4 MG/2 ML VIAL IVP PRN (00:45)
[2022-05-07] MEDS ORDERED: Acetaminophen 325 MG TABLET PO PRN (00:45)
[2022-05-07] MEDS ORDERED: *HR* HYDROcodone/Acet 5/325 mg TABLET PO PRN (00:45)
[2022-05-07] MEDS ORDERED: *HR* Dextrose 50 % in Water (Syg) 50 ML SYRINGE IVP PRN (00:49)
[2022-05-07] MEDS ORDERED: Dextrose Gel 15 GM/37.5 ML TUBE PO PRN ×2 (00:49)
[2022-05-07] MEDS ORDERED: D5% in Water 1,000 ML IVC PRN (00:49)
[2022-05-07] MEDS: Ringers Solution, Lactated 1,000 ML IVC SCH ×2 (03:19→11:49)
[2022-05-07 05:09] LABS: Basophils # 0.1 K/mcL (0.0-0.2); Basophils % 1.3 %; Eosinophils # 0.2 K/mcL (0.0-0.6); Eosinophils % 3.6 %; Hematocrit 33.9 % (37.5-50.1); Immature Granulocytes % 0.2 % (0-4); Lymphocytes # 1.6 K/mcL (0.6-4.6); Mean Corpuscular HGB Conc 32.4 g/dL (31.6-35.5); Mean Corpuscular Hemoglobin 27.8 pg (28.0-33.3); Mean Corpuscular Volume 85.8 fL (83.0-100.0); Mean Platelet Volume 9.7 fL (9.4-12.4); Monocytes # 0.5 K/mcL (0.0-1.3); Monocytes % 8.9 %; Neutrophils # 3.6 K/mcL (1.6-8.9); Platelet Count 228 K/mcL (140-400); Red Blood Count 3.95 M/mcL (4.19-5.50); Red Cell Distribution Width 13.5 % (11.5-14.5); White Blood Count 6.1 K/mcL (4.3-11.1)
[2022-05-07 05:16] LABS: INR 1.1; Prothrombin Time 12.3 Seconds (9.4-12.1)
[2022-05-07 05:36] LABS: BUN/Creatinine Ratio 20 (6-26); Blood Urea Nitrogen 22 mg/dL (8-23); Calcium 9.3 mg/dL (8.6-10.3); Carbon Dioxide 26 mEq/L (23-29); Chloride 102 mEq/L (98-107); Glucose 171 mg/dL (70-105); Magnesium 1.7 mg/dL (1.6-2.6); Osmolality,Calculated 287 (280-300); Potassium 4.5 mEq/L (3.5-5.1); Sodium 135 mEq/L (136-145); eGFR For African Americans > 60 (> 60); eGFR For Non-African Americans > 60 (> 60)
[2022-05-07] MEDS: Insulin LISPRO 300 UNITS/3 ML VIAL SUBQ SCH ×4 (05:49→23:37)
[2022-05-07] MEDS: Aspirin Enteric Coated 81 MG Tablet PO SCH (10:49)
[2022-05-07] MEDS ORDERED: Perflutren Lipid Microsphere 1.3 ML in 0.9 % Sodium Chloride 8.7 ML IVP PRN (15:37)
[2022-05-08 05:23] LABS: Chol/HDL Ratio 4.8 (0-4.9)
[2022-05-08] MEDS: Insulin LISPRO 300 UNITS/3 ML VIAL SUBQ SCH ×3 (05:51→17:17)
[2022-05-08] MEDS: Aspirin Enteric Coated 81 MG Tablet PO SCH (08:46)
[2022-05-08] MEDS: QUEtiapine Fumarate 25 MG TABLET PO SCH (11:54)
[2022-05-08] MEDS: Ketoconazole 2% CRM 15 GM TUBE TP SCH (20:56)
[2022-05-08] MEDS ORDERED: QUEtiapine Fumarate 25 MG TABLET PO SCH (21:00)
[2022-05-09 07:29] VITALS: TEMP 98.2
[2022-05-09] MEDS: Insulin LISPRO 300 UNITS/3 ML VIAL SUBQ SCH ×2 (08:24→12:06)
[2022-05-09] MEDS: Ketoconazole 2% CRM 15 GM TUBE TP SCH (08:25)
[2022-05-09] MEDS: Aspirin Enteric Coated 81 MG Tablet PO SCH (08:25)
[2022-05-09] MEDS ORDERED: Cholecalciferol (D-3) 1,000 UNIT (25MCG) TABLET PO SCH (09:00)
[2022-05-09] MEDS ORDERED: QUEtiapine Fumarate 25 MG TABLET PO SCH (09:00)
[2022-05-09] MEDS ORDERED: Famotidine 20 MG TABLET PO SCH (09:00)
[2022-05-09 11:14] VITALS: BP 135/83; PULSE 84; O2SAT 93
[2022-05-09 11:46] LABS: Adenovirus Not Detected (Not Detect); Bordetella Pertussis Not Detected (Not Detect); Chlamydophila pneumoniae Not Detected (Not Detect); Coronavirus 229E Not Detected (Not Detect); Coronavirus HKU1 Not Detected (Not Detect); Coronavirus NL63 Not Detected (Not Detect); Coronavirus OC43 Not Detected (Not Detect); Human Metapneumovirus Not Detected (Not Detect); Human Rhinovirus/Enterovirus Not Detected (Not Detect); Influenza A Subtype 2009 H1 Not Detected (Not Detect); Influenza B Not Detected (Not Detect); Mycoplasma pneumoniae Not Detected (Not Detect); Parainfluenza Virus 1 Not Detected (Not Detect); Parainfluenza Virus 2 Not Detected (Not Detect); Parainfluenza Virus 3 Not Detected (Not Detect); Parainfluenza Virus 4 Not Detected (Not Detect); Respiratory Syncytial Virus Not Detected (Not Detect); SARS-CoV-2 Not Detected (Not Detect)
[2022-05-09] MEDS: QUEtiapine Fumarate 25 MG TABLET PO SCH (12:06)
== END 2022-05-09 13:10 | DRG 65 ==
LOC: EMEROOARM 21:35 → 3ANU 21:35 → SUATTDRO 05-07 00:49 → 3ANU 05-07 01:35
PROVIDERS: ADMIT Internal Medicine; ATTEND Internal Medicine